=== PATIENT | female | born 2000 | race Caucasian/White ===

== ENCOUNTER 2019-02-25 10:05 | Emergency (ER) | payer OTHER ==
--- NOTE | 2019-02-25 11:16 | ED ---
Respiratory - HPI Summary HPI Summary: 18 year old female presents to the ED with a chief complaint of a productive cough starting two weeks ago. The cough is productive with white sputum and comes in fits. She states the cough keeps her up at night and that Robitussin does not alleviate the cough. Exertion does not aggravate the cough. She denies fever, chills, erythema of eyes, sneezing, itching eyes, watery eyes, sore throat, diaphoresis, dizziness, lightheadedness, chest pain, SOB, ear pain, rhinorrhea, myalgia, abdominal pain, N/V, dysuria, hematuria, edema, or rash. No family history of eczema, RA, or asthma. Patient is not on control pills but has a normal menstrual cycle. - History of Current Complaint Chief Complaint: EDUpperRespComplaint Stated Complaint: BAD COUGH/COUGHING SPELL PER PATIENT Time Seen by Provider: 02/25/19 10:24 Hx Obtained From: Patient Onset/Duration: Lasting Weeks, Still Present Timing: Intermittent Episodes Lasting: - Minutes Initial Severity: Mild Current Severity: Mild Pain Intensity: 0 Character: Cough (Productive) Sputum Amount: Small Sputum Color: Clear, White Aggravating Factor(s): Nothing Alleviating Factor(s): Nothing - Allergy/Home Medications Allergies/Adverse Reactions: Allergies Allergy/AdvReac Type Severity Reaction Status Date / Time No Known Allergies Allergy Verified 02/25/19 11:29 Home Medications: Home Medications guaiFENesin LIQ* [Robitussin*] 5 mg PO Q4H PRN 02/25/19 [History Confirmed 02/25] PMH/Surg Hx/FS Hx/Imm Hx Previously Healthy: Yes Respiratory History: Denies: Hx Asthma Opthamlomology History: Denies: Hx Legally Blind EENT History: Denies: Hx Deafness - Surgical History Surgical History: None Surgery Procedure, Year, and Place: none Infectious Disease History: No Infectious Disease History: Denies: Traveled Outside the [place] in Last 30 Days - Family History Known Family History: Positive: Other - No asthma, eczema, or RA - Social History Occupation: Student Lives: Dormitory/Roommates Alcohol Use: Occasionally Hx Substance Use: No Substance Use Type: Reports: None Hx Tobacco Use: No Smoking Status (MU): Never Smoked Tobacco Review of Systems Negative: Fever, Chills, Skin Diaphoresis Negative: Erythema, Other - No itchy eyes, watery eyes. Negative: Sore Throat, Ear Ache, Nasal Discharge Negative: Chest Pain Positive: Cough. Negative: Shortness Of Breath, Other - no cough on exertion Negative: Abdominal Pain, Vomiting, Nausea Negative: dysuria, hematuria Negative: Myalgia, Edema Negative: Rash Neurological: Negative - No dizziness or lightheadedness, Other - Difficulty sleeping All Other Systems Reviewed And Are Negative: Yes Physical Exam - Summary Physical Exam Summary: Constitutional: Well-developed, Well-nourished, Alert. (-) Distressed Skin: Warm, Dry HENT: Normocephalic; Atraumatic Eyes: Conjunctiva normal Neck: Musculoskeletal ROM normal neck. (-) JVD, (-) Stridor, (-) Tracheal deviation Cardio: Rhythm regular, rate normal, Heart sounds normal; Intact distal pulses; The pedal pulses are 2+ and symmetric. Radial pulses are 2+ and symmetric. (-) Murmur Pulmonary/Chest wall: Effort normal. (-) Respiratory distress, (-) Wheezes, (-) Rales Abd: Soft, (-) tenderness, (-) Distension, (-) Guarding, (-) Rebound Musculoskeletal: (-) Edema Lymph: (-) Cervical adenopathy Neuro: Alert, Oriented x3 Psych: Mood and affect Normal Triage Information Reviewed: Yes Vital Signs On Initial Exam: Initial Vitals Temp Pulse Resp BP Pulse Ox 98.6 F 77 19 142/72 99 02/25/19 10:10 02/25/19 10:10 02/25/19 10:10 02/25/19 10:10 02/25/19 10:10 Vital Signs Reviewed: Yes Procedures - Sedation Patient Received Moderate/Deep Sedation with Procedure: No Diagnostics - Vital Signs Vital Signs Temp Pulse Resp BP Pulse Ox 02/25/19 10:10 98.6 F 77 19 142/72 99 - Laboratory Lab Statement: Any lab studies that have been ordered have been reviewed, and results considered in the medical decision making process. Disposition - Course Course Of Treatment: 18 y/o F with cc of intermittent episodes of productive cough with white sputum over the last two weeks that causes sleep disturbance and isnt relieved by Robitussin or aggravated with exertion. Denies any sneezing, itching eyes, watery eyes, sore throat, sweats, dizziness, lightheadedness, chest pain, ear pain, rhinorrhea, or myalgia. Physical exam is unremarkable. She is clear for discharge home with follow up with [facility] or [facility] in 3-5 days. Rx for Codeine Guaifenesin. She understands and agrees with this plan. Diagnosis is upper respiratory infection. - Diagnoses Provider Diagnoses: Upper respiratory infection Is Visit Related: No Discharge ED - Sign-Out/Discharge Documenting (check all that apply): Patient Departure - discharge - Discharge Plan Condition: Stable Disposition: HOME Prescriptions: Codeine Phosphate/Guaifenesin [Codeine-Guaifen 10-100 mg/5 ml] 5 - 10 ml PO BEDTIME PRN #50 ml MDD 10 PRN Reason: Cough Patient Education Materials: Upper Respiratory Infection (ED) Referrals: [facility] - MRManoj [Primary Care Provider] - 3 Days Additional Instructions: Follow up with [facility] in 3-5 days. You can also follow up with [facility] at the number [phone]. RETURN TO THE EMERGENCY DEPARTMENT FOR CHANGING OR WORSENING SYMPTOMS. PLEASE TAKE MEDICATIONS PRESCRIBED. - Billing Disposition and Condition Condition: STABLE Disposition: Home - Attestation Statements Document Initiated by Scribe: Yes Documenting Scribe: Melissa Woody Provider For Whom Sheridan is Documenting (Include Credential): Reji Medina MD Scribe Attestation: Melissa Padilla, scribed for Reji Medina MD on 03/08/19 at [id number]. Scribe Documentation Reviewed: Yes Provider Attestation: The documentation as recorded by the Melissa diaz accurately reflects the service I personally performed and the decisions made by , Reji Medina MD Status of Scribe Document: Viewed
== END 2019-02-25 11:30 | disposition home or self-care (01) ==
LOC: EDBD → ED 10:05
DX: J06.9 Acute upper respiratory infection, unspecified (principal); Z79.899 Other long term (current) drug therapy
CPT/HCPCS: 99282